=== PATIENT | female | born 1990 | race Two or more races ===

== ENCOUNTER 2016-08-12 07:08 | Emergency (ER) | payer OTHER ==
[2016-08-12 07:41] VITALS: BP 119/82; PULSE 91; RESP 18; TEMP 99; O2SAT 97
--- NOTE | 2016-08-12 07:43 | UCPHY ---
H & P Time Seen by Provider: 08/12/16 07:27 Patient Type: New HPI/ROS: HPI Urinary complaints. 25-year-old female by private vehicle. She complains of burning with urination , increased frequency and urgency for the last 2 days. She is currently menstruating. No back pain. No significant abdominal pain. No fever. ROS: Constitutional: No fever, no chills. No weakness. Eyes: No discharge. No changes in vision. ENT: No sore throat. No nasal congestion or rhinorrhea. Respiratory: No cough. No shortness of breath. Cardiac: No chest pain, no palpitations. Gastrointestinal: No abdominal pain, no vomiting, no diarrhea. Genitourinary: No hematuria. As above. Musculoskeletal: No back pain. No neck pain. No myalgias or arthralgias. Skin: No rashes. Neurological: No headache. No focal weakness or altered sensation. Past medical history: None. Social history: Here by herself. Nonsmoker. Physical Exam: General Appearance: Alert, no distress. This patient is responding to questions appropriately and in full sentences. This patient appears well- hydrated and well-nourished. Eyes: Pupils equal and round no pallor or injection. No lid edema, erythema or injection. Gastrointestinal: Abdomen is soft and nontender, no masses, bowel sounds normal. No focal tenderness at McBurney's point. No Redmond sign. Neurological: Motor sensory function is grossly intact. Cranial nerves are normal. Gait is normal. Skin: Warm and dry, no rashes. Musculoskeletal: No CVA tenderness on palpation. Extremities are symmetrical. All joints range without pain or impingement. Psychiatric: No agitation. No depression. Database: EKG: Imaging: Procedures: Emergency department course: Results of urinalysis discussed with the patient. Diagnosis of urinary tract infection reviewed. Medication allergies reviewed. We will start her on Keflex at urgent care. She will be prescribed this medication on discharge for 5 days. Follow-up and return to Urgent Care precautions discussed with her. All of her questions were answered. She was discharged in good condition. Differential Diagnosis: The differential diagnosis on this patient includes but is not limited to urinary tract infection. Pyelonephritis, STD, yeast infection unlikely. This represents a partial list of diagnoses considered. These considerations are based on history, physical exam, past history, reassessment and diagnostic testing. Allergies/Adverse Reactions: sulfamethoxazole [From Bactrim] Allergy (Verified 08/12/16 07:37) trimethoprim [From Bactrim] Allergy (Verified 08/12/16 07:37) Home Medications: Medication Instructions Recorded Allergy Medicine 08/12/16 Bcp 08/12/16 Cephalexin [Keflex (*)] 500 mg PO Q6 5 Days 08/12/16 Effexor 08/12/16 Wellbutrin Sr 08/12/16 Medical Decision Making - Data Points Laboratory Results: 08/12/16 07:30 Urine RBC Pending Urine WBC Pending Ur Epithelial Cells Pending Ur Culture Indicated? Pending Urine Test Pending Departure - Departure Disposition: Home, Routine, Self-Care Clinical Impression: Urinary tract infection Condition: Good Instructions: Urinary Tract Infection in Women (ED) Additional Instructions: Read and follow provided instructions. Follow-up with your primary care physician in 1-2 days for re-evaluation. Take medication as prescribed through entire course of treatment. Return to the emergency department for worsening symptoms, fever, back pain, vomiting or other serious concerns. Referrals: [place],. [Primary Care Provider] - As per Instructions Prescriptions: Cephalexin [Keflex (*)] 500 mg PO Q6 5 Days - PQRS PQRS Measurement: Not applicable.
[2016-08-12 07:51] LABS: BACTERIA 2+ /hpf (NONE SEEN); WBC,URINE >182 /hpf (0-3); YEAST OCCASIONAL /hpf (NONE SEEN)
[2016-08-12] MEDS ORDERED: CEPHALEXIN 500 MG CAP PO ONE (07:53)
[2016-08-12 07:54] LABS: COLOR YELLOW; LEUKOCYTE ESTERASE,URINE 1+ (NEGATIVE); NITRITE,URINE NEGATIVE (NEGATIVE); PH,URINE 6.5 (5.0-7.5)
== END 2016-08-12 08:01 | disposition home or self-care (01) ==
LOC: CED 07:08
DX: N39.0 Urinary tract infection, site not specified (principal)
CPT/HCPCS: 81003-PO; 81015-PO; 81025-PO; 99203-PO; G0463-PO